=== PATIENT | female | born 1945 | race Caucasian/White ===

== ENCOUNTER 2019-01-08 07:29 | Inpatient (IN) | payer MEDICARE, BC ==
[2019-01-01 12:22] LABS: BASOPHILS % (AUTO) 0.7 % (0-1); EOSINOPHILS # (AUTO) 0.2 X10'3 (0-0.9); EOSINOPHILS % (AUTO) 2.5 % (0-6); LYMPHOCYTES # (AUTO) 1.9 X10'3 (1.1-4.8); LYMPHOCYTES % (AUTO) 26.8 % (21-51); MEAN CORPUSCULAR HEMOGLOBIN 29.2 PG (27.0-31.0); MEAN CORPUSCULAR HGB CONC 33.5 g/dL (33.0-36.5); MEAN CORPUSCULAR VOLUME 87.2 FL (78-98); MONOCYTES # (AUTO) 0.6 X10'3 (0-0.9); MONOCYTES % (AUTO) 8.5 % (2-12); NEUTROPHILS # (AUTO) 4.4 X10'3 (1.8-7.7); NEUTROPHILS % (AUTO) 61.5 % (42-75); PRE OP HEMATOCRIT 42.3 % (35.0-45.0); PRE OP HEMOGLOBIN 14.1 g/dL (12.0-16.0); PRE OP PLATELET COUNT 245 X10'3 (140-440); RED BLOOD COUNT 4.85 X10'6 (4.20-5.60); RED CELL DISTRIBUTION WIDTH 15.3 % (11.5-14.5)
[2019-01-01 12:26] LABS: ALKALINE PHOSPHATASE 116 IU/L (46-116); BLOOD UREA NITROGEN 24 MG/DL (7-18); BUN/CREATININE RATIO 35.8 (6.6-38.0); CALCIUM 9.6 MG/DL (8.5-10.1); CHLORIDE 106 MMOL/L (99-107); CREATININE 0.67 MG/DL (0.40-0.90); PRE OP ALT 37 U/L (30-65); PRE OP ANION GAP 8 (8-16); PRE OP AST 22 U/L (10-37); PRE OP BILIRUB, TOTAL 0.4 MG/DL (0.0-1.0); PRE OP GLUCOSE 85 MG/DL (70-104); PRE OP POTASSIUM 4.4 MMOL/L (3.4-5.1); PRE OP SODIUM 142 MMOL/L (135-145); TOTAL CARBON DIOXIDE 28.1 MMOL/L (24-32); TOTAL PROTEIN 7.9 G/DL (6.4-8.2); eGFR 87 ML/MIN
[2019-01-01 12:28] LABS: CLARITY,URINE SLIGHTLY CLOUDY (Clear); COLOR,URINE YELLOW (Yellow); GLUCOSE, URINE NEGATIVE (Neg); KETONES,URINE TRACE mg/dl (Neg); LEUKOCYTE ESTERASE ,URINE TRACE (Neg); NITRITES, URINE NEGATIVE (Neg); OCCULT BLOOD,URINE NEGATIVE (Neg); PROTEIN,URINE NEGATIVE (Neg); UROBILINOGEN,URINE 0.2 E.U/dL (0.2-1.0)
[2019-01-01 12:30] LABS: PRE OP PARTIAL THROMB. TIME 29 SECONDS (22-32); PRE OP PROTIME 9.7 SECONDS (9.0-12.0)
[2019-01-01 12:32] LABS: PRE OP INR < 0.9 INR
[2019-01-01 13:07] LABS: UA COLLECTION TYPE CLN CATCH MIDSTREAM
[2019-01-01 13:08] LABS: MUCUS STRANDS MANY /LPF (Neg); SQUAMOUS EPITHELIAL CELL,UR FEW /LPF (FEW); TRANSITIONAL EPI CELLS,URINE FEW /HPF
[2019-01-01 13:09] LABS: CAL OXALATE CRYSTALS 4+ /HPF (NEGATIVE)
[2019-01-01 13:10] LABS: BACTERIA,URINE FEW /HPF (Neg); RBC,URINE 0-2 /HPF (0-2)
[~2019-01-08] VITALS: Ht 162.6 cm; Wt 75.5 kg
[2019-01-08] VITALS (17 sets, daily range): BP systolic 103–128; BP diastolic 41–67
[~2019-01-08 07:29] MED LIST: ASCO500C15 PO; BIMA2.5D EACHEYE; BIOT10006 PO; CALC-1051 PO; CHOL10002 PO; GLUC-133 PO; HYDROmorphone 1 mg/ml syringe IV PRN; HYDROmorphone inj. 0.5 MG/0.5 ML DISP.SYRIN IV PRN; MACULAR PROTECT COMP; MAGN500C16 PO; MELO-100 PO; OMEG1CAP21 PO; ROSU40TA PO; SERT50TA PO; UBID50CA31 PO; [UNRECOGNIZED DRUG - OTHER]; [UNRECOGNIZED DRUG - OTHER]; acetaminophen 325mg tablet PO ONE; acetaminophen 325mg tablet PO PRN; bisacodyl 10mg suppository rectal RC PRN; cefazolin/dext.iso 2gm/50ml 50 ML IV ONE; celeCOXIB 100mg capsule PO ONE; diphenhydrAMINE 25mg capsule PO PRN; famotidine 20mg tablet PO ONE; gabapentin 300mg capsule PO ONE; magnesium hydroxide 30ml (MOM) UD suspension PO PRN; metoclopramide 5 mg/ml inj IV ONE; oxyCODONE SR 10mg (sust. release) tab -2 tabs (20mg) PO ONE; ringers solution, lacted 1,000 ML IV SCH; tranexamic acid inj. 1,000 MG in normal saline 100 ML IV ONE; vancomycin inj 1,500 MG in normal saline 300ml IV soln IV ONE
[2019-01-08] MEDS ORDERED: sertraline 50mg tablet PO SCH (08:00)
[2019-01-08] MEDS ORDERED: ringers solution, lacted 1,000 ML IV SCH (08:04)
[2019-01-08] MEDS ORDERED: morphine 4 MG/ML inj SYRINge IV PRN ×2 (08:05)
[2019-01-08] MEDS ORDERED: labetalol 20mg/4ml (5mg/ml) syringe IV PRN (08:05)
[2019-01-08] MEDS ORDERED: hydrALAZINE 20mg/ml inj. IV PRN (08:05)
[2019-01-08] MEDS ORDERED: ondansetron/PF 4mg/2ml inj IV PRN ×2 (08:05→08:10)
[2019-01-08] MEDS ORDERED: fentaNYL/PF 50MCG/1 ML 2ML syringe IV PRN ×2 (08:05)
[2019-01-08] MEDS ORDERED: diphenhydrAMINE 50 mg/ml inj IV PRN (08:10)
[2019-01-08] MEDS ORDERED: ROPIVAcaine 0.2%/PF PAIN PUMP 550 ML IJ SCH (09:00)
[2019-01-08] MEDS ORDERED: ketorolac trometh. 30mg/ml inj. ONE (10:34)
[2019-01-08] MEDS ORDERED: vancomycin 1,000mg inj ONE (10:35)
[2019-01-08] MEDS ORDERED: epiNEPHrine 1 mg/ml inj ONE (10:35)
[2019-01-08] MEDS ORDERED: ROPIVAcaine 0.5% (5mg/ml) 30ml vial ONE ×2 (10:35→11:51)
[2019-01-08] MEDS ORDERED: cloNIDine hcl/PF 100mcg/ml inj ONE (10:35)
[2019-01-08] MEDS ORDERED: fentaNYL/PF 50MCG/1 ML 2ML syringe ONE (10:53)
[2019-01-08] MEDS ORDERED: MIDAZolam 5mg/5ml vial ONE (10:53)
[2019-01-08] MEDS ORDERED: propofol inj 20 ML IV ONE (11:18)
[2019-01-08] MEDS ORDERED: ePHEDrine 50MG/ML INJ. ONE (11:32)
--- NOTE | 2019-01-08 13:00 | NUR ---
Received from OR via BED , accompanied by Anesthesiologist DR GABRIEL and report given by Anesthesiolgist. PATIENT WAKING UP, DENIES PAIN, V/S WNL, NEUROVASCULAR CHECKS INTACT, 18G PIV LUE , DRESSING TO RIGHT KNEE CDI W/ COLD POWDER PACK AND W/ ON QUE BALL W/ SCD ON. F/C DRAINING CLEAR YELLOW URINE. SENSATION T-12.
[2019-01-08] MEDS ORDERED: ROPIVAcaine 0.2%/PF PAIN PUMP 550 ML ADDCANAL SCH (13:38)
--- NOTE | 2019-01-08 14:00 | NUR ---
PATIENT A&OX4, DENIES PAIN, V/S WNL, NEUROVASCULAR CHECKS INTACT, 18G PIV LUE , ROBERTO DRESSING TO RIGHT KNEE CDI W/ COLD POWDER PACK AND ON QUE BALL W/ SCD ON. F/C DRAINING CLEAR YELLOW URINE. SENSATION T-11. PATIENT TAKEN TO 4020A WITH ALL BELONGINGS AND HOOKED UP TO MONITORS IN ROOM AND REPORT GIVEN TO HYDROPRESS OPERATOR WHO HAS TAKEN OVER PATIENT CARE.
--- NOTE | 2019-01-08 14:00 | NUR ---
RECEIVED PATIENT TO ROOM 4020 A. ALERT AND ORIENTED TO THE ROOM. NO PAIN AT THIS TIME, AT THE BEDSIDE.
--- NOTE | 2019-01-08 14:30 | NUR ---
received report from Myra Vera
[2019-01-08] MEDS: potassium cl 20mEq in 1/2 NS 1,000 ML IV SCH ×2 (15:30→20:41)
[2019-01-08] MEDS ORDERED: vancomycin/NS 1 GM ADD-VANTAGE 250 ML IV SCH ×2 (15:30→20:00)
[2019-01-08] MEDS: ROPIVAcaine 0.2%/PF PAIN PUMP 550 ML ADDCANAL SCH ×2 (15:49→22:13)
[2019-01-08] MEDS: ondansetron/PF 4mg/2ml inj IV PRN (16:50)
[2019-01-08] MEDS: ceFAZolin 1GM/D5W- ADD-VANTAGE 50 ML IV SCH (16:50)
[2019-01-08] MEDS ORDERED: tranexamic acid inj. 750 MG in normal saline 100ml IV soln 100 ML IV ONE (17:00)
--- NOTE | 2019-01-08 18:17 | NUR ---
Patient in room ORTHO 4020. I have received report from CLAYTON MOON and had the opportunity to ask questions and assume patient care.
--- NOTE | 2019-01-08 18:18 | NUR ---
Problems reprioritized. Patient report given, questions answered & plan of care reviewed with Michelle Vera.
--- NOTE | 2019-01-08 18:54 | NUR ---
ONQ CHANGED TO 6CC/HR FROM 4CC/HR.
[2019-01-08] MEDS: gabapentin 300mg capsule PO SCH (20:27)
[2019-01-08] MEDS: ascorbic acid 500mg tablet PO SCH (20:27)
[2019-01-08] MEDS: sennosides 8.6mg tablet PO SCH (20:27)
[2019-01-08] MEDS: latanoprost 0.005% 2.5ml ophthalmic drops EACHEYE SCH (20:28)
[2019-01-08] MEDS: oxyCODONE/APAP 5-325mg tablet PO PRN (21:20)
[2019-01-09] MEDS: ceFAZolin 1GM/D5W- ADD-VANTAGE 50 ML IV SCH (00:32)
[2019-01-09] MEDS: oxyCODONE/APAP 5-325mg tablet PO PRN ×4 (01:23→22:05)
[2019-01-09 02:00] VITALS: BP 123/46
[2019-01-09] MEDS: ROPIVAcaine 0.2%/PF PAIN PUMP 550 ML ADDCANAL SCH (03:49)
[2019-01-09] MEDS: ondansetron/PF 4mg/2ml inj IV PRN ×2 (05:17→07:50)
[2019-01-09] MEDS: potassium cl 20mEq in 1/2 NS 1,000 ML IV SCH ×2 (05:20→07:31)
[2019-01-09 05:58] LABS: BASOPHILS % (AUTO) 0.2 % (0-1); EOSINOPHILS % (AUTO) 0.2 % (0-6); HEMATOCRIT 32.1 % (35.0-45.0); HEMOGLOBIN 10.9 g/dl (12.0-16.0); LYMPHOCYTES % (AUTO) 11.9 % (21-51); MEAN CORPUSCULAR HEMOGLOBIN 29.8 PG (27.0-31.0); MEAN CORPUSCULAR VOLUME 87.6 FL (78-98); MEAN PLATELET VOLUME 7.5 FL (7.4-10.4); MONOCYTES # (AUTO) 0.6 X10'3 (0-0.9); MONOCYTES % (AUTO) 7.7 % (2-12); NEUTROPHILS # (AUTO) 6.8 X10'3 (1.8-7.7); PLATELET COUNT 193 X10'3 (140-440); RED BLOOD COUNT 3.67 X10'6 (4.20-5.60); RED CELL DISTRIBUTION WIDTH 14.9 % (11.5-14.5); WHITE BLOOD COUNT 8.5 X10'3 (4.5-11.0)
[2019-01-09 06:00] VITALS: BP 114/46
--- NOTE | 2019-01-09 06:00 | NUR ---
Patient in room ORTHO 4020. I have received report from LEXII ARNOLD and had the opportunity to ask questions and assume patient care.
--- NOTE | 2019-01-09 06:38 | NUR ---
Problems reprioritized. Patient report given, questions answered & plan of care reviewed with tio arce.
[2019-01-09 06:47] LABS: ANION GAP 4 (8-16); CHLORIDE 102 MMOL/L (99-107); POTASSIUM 4.6 MMOL/L (3.5-5.1); SODIUM 135 MMOL/L (135-145); TOTAL CARBON DIOXIDE 28.7 MMOL/L (24-32)
[2019-01-09] MEDS: aspirin 325mg tablet PO SCH (09:20)
[2019-01-09] MEDS: gabapentin 300mg capsule PO SCH ×3 (09:20→21:04)
[2019-01-09] MEDS: sertraline 50mg tablet PO SCH (09:20)
[2019-01-09] MEDS: multivitamins, therapeutics tablet PO SCH (09:21)
[2019-01-09] MEDS: atorvastatin 20mg tablet PO SCH (09:21)
[2019-01-09] MEDS: ascorbic acid 500mg tablet PO SCH ×2 (09:21→21:05)
[2019-01-09 10:00] VITALS: BP 107/39
[2019-01-09 14:28] VITALS: BP 110/43
--- NOTE | 2019-01-09 17:01 | NUR ---
Joint replacement consult: Pt seen by PRANAV for written/verbal high protein ed w/ RD contact information provided. Pt declines additional proteins at this time. Addendum: 01/09/19 at [address] Amended: Links added.
[2019-01-09 18:00] VITALS: BP 92/34
--- NOTE | 2019-01-09 18:17 | NUR ---
Problems reprioritized. Patient report given, questions answered & plan of care reviewed with Michelle ARNOLD.
[2019-01-09] MEDS: celeCOXIB 100mg capsule PO SCH (21:04)
[2019-01-09] MEDS: sennosides 8.6mg tablet PO SCH (21:05)
[2019-01-09] MEDS: latanoprost 0.005% 2.5ml ophthalmic drops EACHEYE SCH (21:05)
[2019-01-09 21:47] VITALS: BP 154/54
[2019-01-10] MEDS: oxyCODONE/APAP 5-325mg tablet PO PRN ×2 (04:44→10:50)
[2019-01-10 05:00] VITALS: BP 107/55
--- NOTE | 2019-01-10 05:44 | NUR ---
PT HR IN 130'S AT 0500 AFTER WENT TO BATHROOM. PT IS ASYMPTOMATIC. AT 0525 HR DOWN TO 80'S AND SUSTAINING. WAITING FOR MD TO ARRIVE ON THE FLOOR THIS MORNING.
[2019-01-10 06:18] LABS: BASOPHILS % (AUTO) 0.3 % (0-1); EOSINOPHILS # (AUTO) 0.1 X10'3 (0-0.9); EOSINOPHILS % (AUTO) 1.1 % (0-6); HEMATOCRIT 32.3 % (35.0-45.0); HEMOGLOBIN 10.9 g/dl (12.0-16.0); LYMPHOCYTES # (AUTO) 0.8 X10'3 (1.1-4.8); LYMPHOCYTES % (AUTO) 12.3 % (21-51); MEAN CORPUSCULAR HEMOGLOBIN 29.4 PG (27.0-31.0); MEAN CORPUSCULAR HGB CONC 33.8 g/dL (33.0-36.5); MEAN PLATELET VOLUME 7.8 FL (7.4-10.4); MONOCYTES # (AUTO) 0.9 X10'3 (0-0.9); MONOCYTES % (AUTO) 14.3 % (2-12); NEUTROPHILS # (AUTO) 4.7 X10'3 (1.8-7.7); PLATELET COUNT 183 X10'3 (140-440); RED BLOOD COUNT 3.72 X10'6 (4.20-5.60); RED CELL DISTRIBUTION WIDTH 14.8 % (11.5-14.5); WHITE BLOOD COUNT 6.6 X10'3 (4.5-11.0)
--- NOTE | 2019-01-10 06:30 | NUR ---
Problems reprioritized. Patient report given, questions answered & plan of care reviewed with CLAYTON AYERS.
[2019-01-10] MEDS: potassium cl 20mEq in 1/2 NS 1,000 ML IV SCH ×3 (07:30→07:42)
[2019-01-10] MEDS: ascorbic acid 500mg tablet PO SCH (07:33)
[2019-01-10] MEDS: celeCOXIB 100mg capsule PO SCH (07:36)
[2019-01-10] MEDS: atorvastatin 20mg tablet PO SCH (07:37)
[2019-01-10] MEDS: multivitamins, therapeutics tablet PO SCH (07:37)
[2019-01-10] MEDS: gabapentin 300mg capsule PO SCH (07:37)
[2019-01-10] MEDS: sertraline 50mg tablet PO SCH (07:38)
[2019-01-10] MEDS: aspirin 325mg tablet PO SCH (07:39)
[2019-01-10 10:00] VITALS: BP 95/33
[2019-01-10] MEDS: ROPIVAcaine 0.2%/PF PAIN PUMP 550 ML ADDCANAL SCH (12:35)
== END 2019-01-10 12:45 | disposition home or self-care (01) | DRG 470 ==
LOC: PAS IN 07:29 → EDSTATUS 12:45 → ORTHO 4S 14:07
PROVIDERS: ADMIT Orthopaedic Surgery; ATTEND Orthopaedic Surgery
PROC: 3E0T3BZ Introduction of Anesthetic Agent into Peripheral Nerves and Plexi, Percutaneous Approach (ICD-10-PCS; 2019-01-08)
PROC: 0SRC0J9 Replacement of Right Knee Joint with Synthetic Substitute, Cemented, Open Approach (ICD-10-PCS; principal; 2019-01-08 10:42)
DX: M17.11 Unilateral primary osteoarthritis, right knee (principal); D62 Acute posthemorrhagic anemia; E78.5 Hyperlipidemia, unspecified; E66.9 Obesity, unspecified; M25.761 Osteophyte, right knee; M21.061 Valgus deformity, not elsewhere classified, right knee; I10 Essential (primary) hypertension; H40.9 Unspecified glaucoma; Z85.3 Personal history of malignant neoplasm of breast; Z80.9 Family history of malignant neoplasm, unspecified; Z68.28 Body mass index [BMI] 28.0-28.9, adult; Z90.710 Acquired absence of both cervix and uterus; Z82.49 Family history of ischemic heart disease and other diseases of the circulatory system; Z87.891 Personal history of nicotine dependence
CPT/HCPCS: 36415; 71046; 73560; 80051; 80053; 81001; 82948; 85025; 85610; 85730; 86885; 86900; 86901; 87081; 87088; 97110; 97112; 97116; 97162; 97530; A4215; A6449; A6454; A7000; C1713; C1758; C1776; G0378; J0171; J0690; J0735; J1885; J2250; J2405; J2704; J2765; J2795; J3010; J3370; J3480; J7120